=== PATIENT | female | born 1965 | race Caucasian/White ===

== ENCOUNTER 2017-11-11 17:25 | Observation (INO) | payer BC ==
[2017-11-11] MEDS ORDERED: EPINEPHRINE 1 MG/ML AMPUL IM ONE (17:28)
[2017-11-11] MEDS ORDERED: DIPHENHYDRAMINE HCL 50 MG/ML VIAL IVP ONE (17:28)
[2017-11-11] MEDS ORDERED: METHYLPREDNISOLONE PF 125MG/VIAL IVP ONE (17:28)
[2017-11-11] MEDS ORDERED: 0.9 % SODIUM CHLORIDE 1,000 ML BAG IV ONE (17:29)
--- NOTE | 2017-11-11 17:36 | Emergency Department Record ---
History of Present Illness - General Chief complaint: Allergic Reaction Stated complaint: ALLERGIC/BEE STING Time Seen by Provider: 11/11/17 17:28 Source: Patient Mode of Arrival: Ambulatory Limitations: No limitations - History of Present Illness Initial Comments: The patient sustained a bee sting to the L lower leg about an hour ago. She has a hx of anaphylaxis to bee stings and now is having itching all over and a rash with mild MARYANN. She has had similar rxn's in the past and does have an Epi pen but it is quite old. She did take 50 mg of Benadryl about 20 minutes ago. MD Complaint: Allergic reaction, Hives, Facial swelling Onset/Timin -: Hour(s) - Related Data Home Medications Medication Instructions Recorded Confirmed Last Taken Loratadine [Claritin] 10 mg PO DAILY 11/11/17 11/11/17 11/11/17 Norethindrone-Ethinyl Estrad 1 each PO DAILY 11/11/17 11/11/17 11/11/17 [Nortrel 1-35 28 Tablet] Allergies Allergy/AdvReac Type Severity Reaction Status Date / Time bee venom protein (honey bee) Allergy ANAPHYLAXIS Verified 11/11/17 17:42 grass pollen Allergy HIVES Verified 11/11/17 17:42 pedro pablo Allergy HIVES Verified 11/11/17 17:42 Review of Systems Constitutional: Denies: Chills, Fever Eyes: Denies: Eye discharge ENT: Denies: Congestion Respiratory: Denies: Cough, Dyspnea Physical Exam - General General Appearance: Alert, Oriented x3, Cooperative, No acute distress - Head Head exam: Atraumatic, Normocephalic, Normal inspection - Eye Eye exam: Normal appearance, PERRL, EOMI - ENT Throat exam: Normal inspection. negative: Tonsillar erythema, Tonsillar exudate - Neck Neck exam: Normal inspection, Full ROM. negative: Tenderness - Respiratory Respiratory exam: Normal lung sounds bilaterally. negative: Respiratory distress - Cardiovascular Cardiovascular Exam: Regular rate, Normal rhythm, Normal heart sounds - GI/Abdominal GI/Abdominal exam: Soft, Normal bowel sounds. negative: Tenderness - Extremities Extremities exam: negative: Normal inspection - Skin Skin exam: Erythema, Rash (There is a diffuse urticarial rash to the face, trunk and extremities.), Urticaria Course - Reevaluation(s) Reevaluation #1: The patient is doing a lot better at this time. The rash is much improved and she denies any MARYANN. 11/11/17 17:40 Reevaluation #2: The patient is doing a lot better at this time. She denies any CP, tightness or SOB. Her Rash is improved but still present at the bite site. 11/11/17 18:18 Reevaluation #3: The patient is doing very well at this time. Due to the nature of her illness and complaints I do feel the prudent course of action is to have the patient admitted overnight for monitoring and frequent Benadryl and Solumedrol. The patient agrees with the plan. I also did discuss the case with Francie ([employer]) and she does accept the patient to the hospital for Dr. Canales. 11/11/17 18:50 Medical Decision Making - Data Complexity MDM Data: Labs Ordered and/or Reviewed, X-Ray Ordered and/or Reviewed, EKG Ordered and/or Reviewed - Lab Data Result diagrams: 11/11/17 17:35 11/11/17 17:35 - EKG Data -: EKG Interpreted by In EKG: No Acute Changes, Normal EKG - Radiology Data Radiology results: Report reviewed (CXR: Neg.) Disposition Disposition: Admit Clinical Impression: Anaphylactic reaction Qualifiers: Encounter type: initial encounter Qualified Code(s): T78.2XXA - Anaphylactic shock, unspecified, initial encounter Disposition: Still a Patient at [facility] Decision to Admit: Admit from ER Decision to Admit Date: 11/11/17 Decision to Admit Time: 18:52 Accepting Physician: Parker Time Discussed w/Accepting Physician: 18:52 Condition: (2) Stable Time of Disposition: 18:52 Quality - Quality Measures Quality Measures: N/A - Blood Pressure Screening View Details: Yes Does Patient Have Any of the Following: No Blood Pressure Classification: Hypertensive Reading Systolic Measurement: 137 Diastolic Measurement: 101 Screening for High Blood Pressure: < First Hypertensive BP, F/U Documented > [ G8950] First Hypertensive Follow-up Interventions: Referral to alternative/primary care provider.
[2017-11-11 18:10] LABS: BASO % 0.1 % (0-6); EOS % 0.2 % (0-6); GRAN % 68.4 % (47-80); HEMATOCRIT 42.1 % (35.0-47.0); HEMOGLOBIN 14.9 gm/dl (11.6-16.0); MEAN CELL VOLUME 88.3 fl (81-97); MEAN CORPUSCULAR HEMOGLOBIN 31.2 pg (27-33); MEAN CORPUSCULAR HGB CONC 35.4 g/dl (32-36); MEAN PLATELET VOLUME 9.5 fl (7.4-10.4); MONO % 5.3 % (0-9); PLATELET COUNT 249 K/uL (130-400); RED BLOOD COUNT 4.77 M/uL (3.80-5.40); RED CELL DISTRIBUTION WIDTH 12.5 % (11.5-14.5); WHITE BLOOD COUNT W/O DIFF 8.3 K/uL (4.2-12.2)
[2017-11-11 18:23] LABS: BLOOD UREA NITROGEN 12 mg/dL (6-20); CREATININE 0.8 mg/dL (0.5-0.9); EST GLOMERULAR FILTRATION RATE > 60 mL/min
[2017-11-11 18:26] LABS: GLUCOSE,RANDOM 127 mg/dL (74-109)
[2017-11-11 18:29] LABS: CREATINE PHOSPHOKINASE 52 U/L (26-192)
[2017-11-11 18:40] LABS: CKMB 1.8 ng/mL (<3.77)
[2017-11-11] MEDS ORDERED: ACETAMINOPHEN 325 MG TAB PO PRN (19:50)
[2017-11-11] MEDS ORDERED: DIPHENHYDRAMINE HCL 50 MG/ML VIAL IVP PRN (19:50)
[2017-11-11] MEDS: METHYLPREDNISOLONE PF 125MG/VIAL IVP SCH (20:48)
[2017-11-11] MEDS: RANITIDINE HCL 50 MG in 0.9 % SODIUM CHLORIDE 100ML 100 ML IVPB SCH (21:18)
[2017-11-12 01:52] LABS: CKMB 1.5 ng/mL (<3.77)
[2017-11-12] MEDS: RANITIDINE HCL 50 MG in 0.9 % SODIUM CHLORIDE 100ML 100 ML IVPB SCH ×2 (04:13→11:35)
[2017-11-12] MEDS: METHYLPREDNISOLONE PF 125MG/VIAL IVP SCH ×2 (04:19→11:36)
--- NOTE | 2017-11-12 08:26 | RADIOLOGY REPORT ---
EXAM: CHEST, TWO VIEWS HISTORY: ALLERGIC REACTION TO BEE STING. DIFFICULTY IN BREATHING. TECHNIQUE: Upright PA and lateral views of the chest were obtained. Comparison: None. FINDINGS: The heart is not enlarged and the pulmonary vasculature is nondilated. The lungs and pleural spaces are clear. Mild degenerative end plate changes scattered throughout the visualized spine. There is moderate gaseous distention of the stomach. IMPRESSION: 1. NO EVIDENCE OF ACUTE CARDIOPULMONARY DISEASE. 2. MODERATE GASEOUS DISTENTION OF THE STOMACH. JOB NUMBER: [id number] [facility]
[2017-11-12] MEDS ORDERED: NORETHINDRONE ETHINYL ESTRAD PO SCH (10:00)
[2017-11-12 10:03] LABS: CKMB 1.3 ng/mL (<3.77)
--- NOTE | 2017-11-12 12:10 | History & Physical ---
History of Present Illness - Date of Service Date of Service for History & Physical: 11/12/17 - History of Present Illness Admitting Diagnosis: 1. Acute Anaphylaxis History of Present Illness: 52 yo admitted for anaphylactic shock and chest tightness. PMH allergic reactions to multiple items. pt was home when she was stung by a yellow jacket bee. pt had localized edema at the sting site (LLL) but then symptoms increased to itching head, ears, "bumps on my tongue" and eventually chest tightness. Pt brought pt in by private car, pt had an epi pen but did not use it prior to arrival. pt had taken Benadryl 50mg [employer] DIRECT[employer] with no decrease in symptoms. Pt presented to ER for bee sting with generalized rash, mild MARYANN, and facial swelling with chest tightness. 98.2F, Hr 97, BP 137/101, RR 20, 98% RA pain 3/10 WBC 8.3, Hgb 14.9, Hct 42.1, plt 249 Na 140, 3.8, CL 99, CO2, BUN 12, creatinine 0.8, GFR >60, CK-MB 1.8, trop <0.010 Pt given Bendryl 25mg IVP, epi 0.3mg IM, solu-medrol 125mg IVP, and 1L NS bolus. EKG NS Pt admitted for OBS for anaphylactic shock monitor and r/o ACS with chest tightness. 11/12/17 Pt in no distress, rash and edema has resolved. Cardiac enzymes have resulted all normal, no CP since treatment in ER. POC, pt d/c today, get new epi pen, follow up with PCP. PCP to refer to clip coater and cardiology if needed. Pt to also get medical alert bracelet and carry epi pen AT ALL TIMES. Travel Screening - Travel/Exposure Within Last 30 Days Have you traveled within the last 30 days?: No - Travel/Exposure Within Last Year Have you traveled outside the [place] in the last year?: No - Additonal Travel Details Have you been exposed to anyone with a communicable illness?: No - Travel Symptoms Symptom Screening: None Review of Systems Constitutional: Denies: Chills, Fever Eyes: Denies: Eye discharge ENT: Denies: Congestion Respiratory: Denies: Cough, Dyspnea Cardiovascular: Denies: Chest pain, Murmurs Gastrointestinal: Denies: Abdominal pain, Constipation, Diarrhea Genitourinary: Denies: Dysuria Musculoskeletal: Denies: Arthralgia Skin: Denies: Bruising Neurological: Denies: Abnormal gait Hematological/Lymphatic: Denies: Easy bleeding, Easy bruising Past Medical History - SOCIAL HISTORY Smoking Status: Never smoker Alcohol Use: None Drug Use: None - RESPIRATORY Hx Respiratory Disorders: Yes Comment:: seasonal allergies - CARDIOVASCULAR Hx Cardio Disorders: No - NEURO Hx Neuro Disorders: No - GI Hx GI Disorders: No - Hx Genitourinary Disorders: No - ENDOCRINE Hx Diabetes: No Hx Thyroid Disease: No - MUSCULOSKELETAL Hx Arthritis: Yes - PSYCH Hx Psych Problems: No - HEMATOLOGY/ONCOLOGY Hx Bruising: Yes Hx Cancer: No Family Medical History Any Significant Family History?: Yes Hx Cancer: Grandparents H&P Meds/Allergies - Allergies Allergies: Allergies Allergy/AdvReac Type Severity Reaction Status Date / Time bee venom protein (honey bee) Allergy ANAPHYLAXIS Verified 11/11/17 17:42 grass pollen Allergy HIVES Verified 11/11/17 17:42 pedro pablo Allergy HIVES Verified 11/11/17 17:42 - Home Medications Home Medications Medication Instructions Recorded Confirmed Last Taken Loratadine [Claritin] 10 mg PO DAILY 11/11/17 11/11/17 11/11/17 Norethindrone-Ethinyl Estrad 1 each PO DAILY 11/11/17 11/11/17 11/11/17 [Nortrel 1-35 28 Tablet] - Active Medications Active Medications: Current Medications Acetaminophen (Tylenol 325mg) 650 mg PO Q4H PRN PRN Reason: PAIN - MILD(1-4)/FEVER Diphenhydramine HCl (Benadryl) 50 mg IVP Q6H PRN PRN Reason: ANAPHYLAXIS Ranitidine HCl 50 mg/ Sodium (Chloride) 102 mls @ 200 mls/hr IVPB Q8H [facility] Last Infusion: 11/12/17 04:56 Dose: Infused Methylprednisolone Sodium Succinate (Solu-Medrol) 60 mg IVP Q8H [facility] Last Admin: 11/12/17 04:19 Dose: 60 mg Non-Formulary Medication (Norethindrone-Ethinyl Estrad [Nortrel 1-35 28 Tablet] ) 1 each PO DAILY [facility] Physical Exam - Vital Signs Vital Signs: Vital Signs - Last 24 Hrs Temp Pulse Pulse Resp BP BP BP 11/12/17 08:14 98.8 F 83 18 145/91 11/12/17 06:00 97.9 F 66 20 145/78 11/12/17 01:51 98.1 F 73 20 156/82 11/11/17 22:30 98.2 F 73 20 138/77 11/11/17 20:14 86 16 11/11/17 19:35 98.3 F 86 20 151/81 11/11/17 19:15 82 18 124/57 11/11/17 18:18 80 22 139/74 11/11/17 17:57 84 18 139/74 11/11/17 17:28 98.2 F 97 H 20 137/101 Pulse Ox 11/12/17 08:14 98 11/12/17 06:00 97 11/12/17 01:51 99 11/11/17 22:30 97 11/11/17 20:14 11/11/17 19:35 99 11/11/17 19:15 98 11/11/17 18:18 99 11/11/17 17:57 11/11/17 17:28 98 - General General Appearance: Alert, Oriented x3, Cooperative, No acute distress Limitations: No limitations - Head Head exam: Atraumatic, Normocephalic, Normal inspection - Eye Eye exam: Normal appearance, PERRL, EOMI - ENT ENT exam: Mucous membranes moist Ear exam: Normal external inspection Mouth exam: Normal external inspection Throat exam: Normal inspection. negative: Tonsillar erythema, Tonsillar exudate - Neck Neck exam: Normal inspection, Full ROM. negative: Tenderness - Respiratory Respiratory exam: Normal lung sounds bilaterally. negative: Respiratory distress - Cardiovascular Cardiovascular Exam: Regular rate, Normal rhythm, Normal heart sounds Peripheral Pulses: 2+: Radial (R), Radial (L), Dorsalis Pedis (R), Dorsalis Pedis (L) - GI/Abdominal GI/Abdominal exam: Soft, Normal bowel sounds. negative: Tenderness - Rectal Rectal exam: Deferred - exam: Deferred - Extremities Extremities exam: negative: Normal inspection - Back Back exam: Reports: Normal inspection - Neurological Neurological exam: Alert, Normal gait, Oriented X3 - Psychiatric Psychiatric exam: Normal affect, Normal mood - Skin Skin exam: Dry, Intact, Warm. negative: Erythema, Rash, Urticaria Results - Labs Result Diagrams: 11/11/17 17:35 11/11/17 17:35 Labs Last 24 Hours: Laboratory Results - last 24 hr 11/11/17 11/11/17 11/12/17 17:35 17:35 01:25 WBC 8.3 RBC 4.77 Hgb 14.9 Hct 42.1 MCV 88.3 MCH 31.2 MCHC 35.4 RDW 12.5 Plt Count 249 MPV 9.5 Gran % 68.4 Lymphocytes % 26.0 Monocytes % 5.3 Eosinophils % 0.2 Basophils % 0.1 Sodium 140 Potassium 3.8 Chloride 99 Carbon Dioxide 23.0 Anion Gap 18.0 H BUN 12 Creatinine 0.8 Estimated GFR > 60 Random Glucose 127 H Calcium 9.0 Creatine Kinase 52 CK-MB (CK-2) 1.8 1.5 Troponin T < 0.010 < 0.010 11/12/17 09:32 WBC RBC Hgb Hct MCV MCH MCHC RDW Plt Count MPV Gran % Lymphocytes % Monocytes % Eosinophils % Basophils % Sodium Potassium Chloride Carbon Dioxide Anion Gap BUN Creatinine Estimated GFR Random Glucose Calcium Creatine Kinase CK-MB (CK-2) 1.3 Troponin T < 0.010 - Imaging and Cardiology Chest x-ray Status: Report reviewed VTE H&P Assessment - Risk for VTE Risk for VTE: Yes Risk Level: Low Risk Assessment Date: 11/12/17 Risk Assessment Time: 12:13 VTE Orders Placed or Will Be Placed: No VTE Reason for No Prophylaxis: Not Indicated (pt d/cing this afternoon) Plan - Detailed Diagnosis and Plan (1) Anaphylactic reaction Current Visit: Yes Status: Acute Qualifiers: Encounter type: initial encounter Qualified Code(s): T78.2XXA - Anaphylactic shock, unspecified, initial encounter Base Code: T78.2XXA - ANAPHYLACTIC SHOCK, UNSPECIFIED, INITIAL ENCOUNTER Comment: 11/12/17 -pt in no distress this afternoon -rash has resolved -denies any issues, requesting to go home and f/u PCP -reports will carry epi pen and use it when needed from now on (2) Chest tightness Current Visit: Yes Status: Acute Base Code: R07.89 - OTHER CHEST PAIN Comment: 11/12/17 -pt denies chest pain, pressure or tightness -cardiac enzymes negative -EKG negative -f/u with PCP
--- NOTE | 2017-11-12 12:22 | Discharge Summary ---
Providers Discharge Summary Date: 11/12/17 Date of admission: 11/11/17 19:44 Expected Date of Discharge: 11/12/17 Attending physician: Boris Fung Primary care physician: Boris Fung Physical Exam - Vital Signs Vital Signs: Vital Signs - Last 24 Hrs Temp Pulse Pulse Resp BP BP BP 11/12/17 08:14 98.8 F 83 18 145/91 11/12/17 06:00 97.9 F 66 20 145/78 11/12/17 01:51 98.1 F 73 20 156/82 11/11/17 22:30 98.2 F 73 20 138/77 11/11/17 20:14 86 16 11/11/17 19:35 98.3 F 86 20 151/81 11/11/17 19:15 82 18 124/57 11/11/17 18:18 80 22 139/74 11/11/17 17:57 84 18 139/74 11/11/17 17:28 98.2 F 97 H 20 137/101 Pulse Ox 11/12/17 08:14 98 11/12/17 06:00 97 11/12/17 01:51 99 11/11/17 22:30 97 11/11/17 20:14 11/11/17 19:35 99 11/11/17 19:15 98 11/11/17 18:18 99 11/11/17 17:57 11/11/17 17:28 98 - General General Appearance: Alert, Oriented x3, Cooperative, No acute distress Limitations: No limitations - Head Head exam: Atraumatic, Normocephalic, Normal inspection - Eye Eye exam: Normal appearance, PERRL, EOMI - ENT ENT exam: Mucous membranes moist Ear exam: Normal external inspection Mouth exam: Normal external inspection Throat exam: Normal inspection. negative: Tonsillar erythema, Tonsillar exudate - Neck Neck exam: Normal inspection, Full ROM. negative: Tenderness - Respiratory Respiratory exam: Normal lung sounds bilaterally. negative: Respiratory distress - Cardiovascular Cardiovascular Exam: Regular rate, Normal rhythm, Normal heart sounds Peripheral Pulses: 2+: Radial (R), Radial (L), Dorsalis Pedis (R), Dorsalis Pedis (L) - GI/Abdominal GI/Abdominal exam: Soft, Normal bowel sounds. negative: Tenderness - Rectal Rectal exam: Deferred - exam: Deferred - Extremities Extremities exam: negative: Normal inspection - Back Back exam: Reports: Normal inspection - Neurological Neurological exam: Alert, Normal gait, Oriented X3 - Psychiatric Psychiatric exam: Normal affect, Normal mood - Skin Skin exam: Dry, Intact, Warm. negative: Erythema, Rash, Urticaria Hospitalization - Hospitalization Admission Diagnosis: 1. Acute Anaphylaxis - Problem List/Discharge Diagnosis (1) Anaphylactic reaction Current Visit: Yes Status: Resolved Discharge Diagnosis: Encounter type: initial encounter Qualified Code(s): T78.2XXA - Anaphylactic shock, unspecified, initial encounter Base Code: T78.2XXA - ANAPHYLACTIC SHOCK, UNSPECIFIED, INITIAL ENCOUNTER Comment: 11/12/17 -pt in no distress this afternoon -rash has resolved -denies any issues, requesting to go home and f/u PCP -reports will carry epi pen and use it when needed from now on (2) Chest tightness Current Visit: Yes Status: Resolved Base Code: R07.89 - OTHER CHEST PAIN Comment: 11/12/17 -pt denies chest pain, pressure or tightness -cardiac enzymes negative -EKG negative -f/u with PCP - Hospitalization Course Disposition: Home, Self-Care Hospital Course: 52 yo admitted for anaphylactic shock and chest tightness. PMH allergic reactions to multiple items. pt was home when she was stung by a yellow jacket bee. pt had localized edema at the sting site (LLL) but then symptoms increased to itching head, ears, "bumps on my tongue" and eventually chest tightness. Pt brought pt in by private car, pt had an epi pen but did not use it prior to arrival. pt had taken Benadryl 50mg BANQUET PILOT with no decrease in symptoms. Pt presented to ER for bee sting with generalized rash, mild MARYANN, and facial swelling with chest tightness. 98.2F, Hr 97, BP 137/101, RR 20, 98% RA pain 3/10 WBC 8.3, Hgb 14.9, Hct 42.1, plt 249 Na 140, 3.8, CL 99, CO2, BUN 12, creatinine 0.8, GFR >60, CK-MB 1.8, trop <0.010 Pt given Bendryl 25mg IVP, epi 0.3mg IM, solu-medrol 125mg IVP, and 1L NS bolus. EKG NS Pt admitted for OBS for anaphylactic shock monitor and r/o ACS with chest tightness. 11/12/17 Pt in no distress, rash and edema has resolved. Cardiac enzymes have resulted all normal, no CP since treatment in ER. POC, pt d/c today, get new epi pen, follow up with PCP. PCP to refer to industrial safety and health manager and cardiology if needed. Pt to also get medical alert bracelet and carry epi pen AT ALL TIMES. Procedures: Imaging and X-Rays 11/11/17 18:17 CHEST 2 VIEWS [RAD] Stat Cardiology Procedures 11/11/17 17:40 EKG NOW 11/11/17 19:50 Medical Or Surgical Instrument Maker .Continuous EKG QDX2@0600 Abnormal Labs: Abnormal Lab Results 11/11/17 Range/Units 17:35 Anion Gap 18.0 H (7-16) Random Glucose 127 H (74-109) mg/dL Condition at Discharge: (2) Stable Discharge Diagnosis: anaphlactic shock and chest tightness Discharge Medications - Discharge Medications Home Medications: Ambulatory Orders Loratadine [Claritin] 10 mg PO DAILY 11/11/17 [Last Taken 11/11/17] Norethindrone-Ethinyl Estrad [Nortrel 1-35 28 Tablet] 1 each PO DAILY 11/11/17 [ Last Taken 11/11/17] Epinephrine 0.3 mg IJ ONCE PRN 1 Days #2 auto.injct 11/12/17 [Last Taken Unknown ] Discharge Plan - Discharge Instructions Activity at Discharge: Increase Activity as Tolerated Diet at Discharge: Regular Diet Additional Instructions: Follow up appointment scheduled with Saima for November 27 at 2:25PM Epi pen has been sent to [facility], CARRY IT ALWAYS. Get a medical alert bracelet. You should carry Benadryl with you and consider changing to Zyrtec if allergy symptoms continue to break through with claritin. Contact this unit today if you have difficulty getting you epi pen filled. Stay indoors for a few days, avoiding bee exposure this soon after an anaphylactic event. Quality Measures - Quality Measures Quality Measures: Documentation of Current Medications in Medical Record, Screening for High Blood Pressure and F/U Documented - Current Medications Quality Measure: Measure #130: Documentation of Current Medications Documentation of Current Medications: <Current Medications Documented/Reviewed> [G8427] - Blood Pressure Screening Quality Measure: Screening for High Blood Pressure and Follow-Up Documented Does Patient Have Any of the Following: No Blood Pressure Classification: Hypertensive Reading Systolic Measurement: 137 Diastolic Measurement: 101 Screening for High Blood Pressure: < Pre-Hypertensive BP, F/U Documented > [ G8950] Pre-Hypertensive Follow-up Interventions: Referral to alternative/primary care provider. - Elder Abuse Suspicion Index EASI Reference Information: Lexus BETANCOURT, Liam C, Lisa Soto, Andrew Sage.Development and validation of a tool to assist physicians identification of elder abuse: The Elder Abuse Suspicion Index (EASI ). Journal of Elder Abuse and Neglect, 2008; 20 (3): 276-300.
== END 2017-11-12 13:18 | disposition home or self-care (01) ==
LOC: ER 17:25 → MEDSURG 19:44
PROVIDERS: ADMIT Emergency Medicine; ATTEND Internal Medicine
DX: T63.441A Toxic effect of venom of bees, accidental (unintentional), initial encounter (principal); T78.2XXA Anaphylactic shock, unspecified, initial encounter; R06.00 Dyspnea, unspecified; R07.89 Other chest pain; R21 Rash and other nonspecific skin eruption
CPT/HCPCS: 99285 ×2; 96374; 96372; 96375; 96361; 82550; 85025; 82553 ×2; 80048; 84484 ×2; 71046; 93005; G0378 ×2; 99220; J0171; J1200; J2780; J2930; J7030